=== PATIENT | female | born 1980 | race Caucasian/White ===

== ENCOUNTER 2016-06-09 05:41 | Inpatient (IN) | payer OTHER ==
--- NOTE | 2016-05-19 12:23 | GHP ---
[f rep st] PREOP HISTORY AND PHYSICAL Scheduled date of surgery is June 09, 2016, at 7:30 a.m. SURGERY TO BE PERFORMED: Primary lower transverse section at 39 weeks for the diagnosis of a history of cystocele following vaginal delivery. Desires . HISTORY OF PRESENT ILLNESS: The patient is a 36-year-old, 2, para 1-0-0-1, with a last mens trual period of 09/08/2015 and EDC of 06/16/2016, which was changed by an 8-week ultrasound. She watkins s had good care at [facility] since registration at 8 weeks. 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 Patient has had good car e, has had good growth, and has progressed to 36 weeks currently. We have had extensive discu ssions regarding her last delivery course and decisions of delivery options for this baby and becaus e of significant cystocele and pelvic prolapse symptoms that persist even now, 3 years following joana martinez of her son, she wishes to have a primary elective for delivery of this baby. With h er G1 delivery, she had care with a lining layer. She labored at home for over 24 hours in which she was pushing for 2-1/2 hours at 9 cm. When she presented to the hospital secondary to exha ustion, she has received an epidural and Pitocin and she labored down passively. She progressed to fully dilated and +2 station, and then she had a 2 hour second stage and delivered. With that deliv jorge alberto, she had bilateral vaginal sulcus laceration and a second-degree perineal laceration, which was repaired. Approximately 2 weeks , she presented for presumed perineal infection, received a course of Keflex antibiotics. Approximately 9 weeks , she had a significant episode of constipation with straining, and she noticed a vaginal bulge. On pelvic exam, she did, at that poi nt, have a cystocele rectocele combination. Her symptoms have waxed and waned over the last 2-1/2 y ears. She is treated with manipulation, with physical therapy, and with acupuncture. We discussed pessary for symptomatic management, and then she got and has declined to use a pessary at t his point, she is very concerned about possibilities of further vaginal damage and decreasing of the support of her pelvic floor, and she does not want to have a vaginal delivery with this baby. She realizes that often second babies have a shorter first stage and second stage and less severe lacera tion risk. She is just not willing to have any risk of further damage to her support of her pelvic floor. Patient was consented for the risk of . She understands the risk of ; the risks of bleeding; infection; damage to organs, uterus, tubes, ovaries, bowel, bladder, nerves, blo od vessels, ureters; risk of injury; risk of hemorrhage requiring blood transfusion; hysterect rivas; or even . She understood these risks and benefits and agreed to proceed. PAST OBSTETRICAL HISTORY: She had the 1 full-term spontaneous vaginal delivery that was discussed p reviously. Baby weighed 8 pounds, 7 ounces in March of 2011. That is her only other . PAST GYNECOLOGICAL HISTORY: No significant abnormal Pap. She does have a history of HSV 2. She watkins s never had current outbreaks. She has a grade 1-2 cystocele and rectocele with uterine prolapse po st delivery. PAST MEDICAL HISTORY: None. PAST SURGICAL HISTORY: She has a history of an appendectomy and a tonsillectomy. She does have a h istory of dengue fever when she was in [place] in 2003. ALLERGIES: She is allergic to penicillin. It gives her a rash. MEDICATIONS: Include vitamins, folic acid, digestive enzymes. She was on a natural thyroi d supplement but has discontinued this, and her TSH has been monitored in is normal. She has used D ioclea likely just for nausea in this . FAMILY HISTORY: Mother has hypertension. Father has atrial fibrillation, also some pulmonary abnor malities. Mother has migraines. Multiple members of her family have depression. Both parents are smokers, have history of alcohol abuse. Sister also has alcohol abuse. No other significant family history. OBJECTIVE: VITAL SIGNS: She is afebrile. Blood pressure is 128/82. Weight is 207, which is a 37 pound weight gain in this . GENERAL: She is a well-developed, well-nourished, gravid fema le, in no acute distress. LUNGS: Clear to auscultation bilaterally. HEART: Regular rate and rhyt hm. No murmurs. ABDOMEN: Gravid, nontender. Fundal height is 47. heart tones are 120s. G BS was done today. Cervical exam was deferred. ASSESSMENT AND PLAN: A 36-year-old, 2, para 1-0-0-1, who will be 39 weeks' gestation on 03/2016, desires an elective primary section secondary to a history of cystocele, rectocele , and uterine prolapse following the vaginal delivery of G1. All questions were answered and consen t was obtained. /[id number]/MODL
--- NOTE | 2016-06-09 06:19 | OBPROG ---
OBG Progress Note Assessment/Plan: Assessment: elevated bp pih labs yesterday wnl elevated bp today iv started without difficulty irregular contractions cat1 fhr Plan:scheduled for previous cystocele and rectocele 06/09/16 06:16 Subjective: I am a little nervous today FHR (bpm): 125 FHR Pattern Variability: Moderate FHR Category: 1 Membranes: Intact - Physical Exam General Appearance: WD/WN, alert, no apparent distress Respiratory: chest non-tender, lungs clear, normal breath sounds Cardiac/Chest: regular rate, rhythm Abdomen: normal bowel sounds Membranes: Intact Extremities: normal range of motion, Ana's sign (negative bilaterally/ dtrs1+ bilaterally negative clonus) DTR- Lower Extremities: Knee (R): 1+, Knee (L): 1+ Skin: normal color, warm/dry Neuro/Psych: no motor/sensory deficits, alert, normal mood/affect, oriented x 3 ICD10 Worksheet Patient Problems: Problems Problem Status Onset scheduled section Acute
[2016-06-09] MEDS ORDERED: LR 500 ML IV ONE (06:20)
[2016-06-09] MEDS ORDERED: CITRIC ACID/SODIUM CITRATE 30 ML UDCUP PO ONE (06:20)
[2016-06-09] MEDS ORDERED: CLINDAMYCIN 900 MG/DEXTROSE 50 ML IV ONE ×2 (06:20→07:30)
[2016-06-09] MEDS ORDERED: LR 1,000 ML IV SCH (06:30)
[2016-06-09 06:37] LABS: % IMMATURE GRANULYOCYTES 0.6 % (0.0-1.1); ABSOLUTE IMMATURE GRANULOCYTES 0.07 10^3/uL (0.00-0.10); ADD DIFF? NO; ADD MORPH? NO; ADD SCAN? NO; ATYPICAL LYMPHOCYTE FLAG 10 (0-99); FRAGMENT RBC FLAG 0 (0-99); HEMOGLOBIN 13.3 g/dL (12.6-16.3); LEFT SHIFT FLG 0 (0-99); LIPEMIA HEMOLYSIS FLAG 90 (0-99); MEAN CELL HEMOGLOBIN 30.4 pg (27.9-34.1); MEAN CELL HEMOGLOBIN CONCENTR. 34.1 g/dL (32.4-36.7); MEAN CELL VOLUME 89.2 fL (81.5-99.8); MEAN PLATELET VOLUME 10.2 fL (8.7-11.7); PLATELET CLUMPS FLAG 0 (0-99); PLATELET COUNT 212 10^3/uL (150-400); RED BLOOD CELL COUNT 4.37 10^6/uL (4.18-5.33); RED CELL DISTRIBUTION WIDTH 14.1 % (11.5-15.2)
[2016-06-09] MEDS ORDERED: PHENYLEPHRINE HCL 100 MCG/ML SYR ONE (07:27)
[2016-06-09] MEDS ORDERED: fentaNYL 100 MCG/2 ML INJ ONE (07:27)
[2016-06-09] MEDS ORDERED: ONDANSETRON 4 MG/2 ML VIAL ONE (07:27)
[2016-06-09] MEDS ORDERED: morphINE PF 5 MG/10 ML INJ ONE (07:28)
[2016-06-09] MEDS ORDERED: LABETALOL HCL 5 MG/ML 20 ML MDV IVP PRN (07:37)
[2016-06-09] MEDS ORDERED: ONDANSETRON 4 MG/2 ML VIAL IVP PRN ×2 (07:37)
[2016-06-09] MEDS ORDERED: fentaNYL 100 MCG/2 ML INJ IVP PRN (07:37)
[2016-06-09] MEDS ORDERED: HYDROmorphONE/DILAUDID 1 MG/ML SYR IVP PRN (07:37)
[2016-06-09] MEDS ORDERED: MEPERIDINE 25 MG/ML SYR IVP PRN (07:37)
[2016-06-09] MEDS ORDERED: NALOXONE HCL 0.4 MG/ML INJ IVP PRN (07:37)
[2016-06-09] MEDS ORDERED: PHENYLEPHRINE HCL 100 MCG/ML SYR IVP PRN (07:37)
[2016-06-09] MEDS ORDERED: LIDOCAINE 1% 30 ML SDV ONE (07:59)
[2016-06-09] MEDS ORDERED: TERBUTALINE SULFATE 1 MG/ML VIAL ONE (08:00)
[2016-06-09] MEDS ORDERED: MISOPROSTOL 200 MCG TAB ONE (08:01)
[2016-06-09] MEDS ORDERED: ACETAMINOPHEN 325 MG TAB PO PRN (09:31)
[2016-06-09] MEDS ORDERED: DOCUSATE SODIUM 100 MG CAP PO PRN (09:31)
[2016-06-09] MEDS ORDERED: SIMETHICONE 80 MG TAB CHEW PO PRN (09:31)
[2016-06-09] MEDS ORDERED: MAGNESIUM HYDROXIDE 30 ML UDCUP PO PRN (09:32)
[2016-06-09] MEDS ORDERED: BISACODYL 10 MG SUPP PR PRN (09:32)
[2016-06-09] MEDS ORDERED: LACTULOSE 20 GM/30 ML UDCUP PO PRN (09:32)
[2016-06-09] MEDS ORDERED: POLYETHYLENE GLYCOL 3350 17 GM PKT PO PRN (09:32)
--- NOTE | 2016-06-09 09:36 | OBPROC ---
- Delivery Pre-op Diagnoses: IUP @ 39 weeks, h/o cystocele, rectocle after vaginal delivery elective c section Post-op Diagnoses: same Procedure: Primary Surgeon: Marcela Saldaña Trauma Doctor: Yashira Escalera Anesthesiologist: Joe Ponce History Professor/QUILL MACHINE TENDER: Caroline Marr Anesthesia: Spinal Complications: None Findings: normal uterus, tubes and ovaries IV Fluid (ml): 2,100 EBL: 800 - [place] Info Infant A Delivery Date: 06/09/16 Delivery Time: 08:35 Sex of : Female Weight (gm): 2693.205 g Score (1 Min): 8 Score (5 Min): 9
[2016-06-09] MEDS: KETOROLAC 30 MG/1 ML SDV IVP PRN ×3 (10:46→23:28)
--- NOTE | 2016-06-09 11:20 | GOP ---
[f rep st] OPERATIVE REPORT DATE OF OPERATION: 06/09/2016 SURGEON: Marcela Saldaña MD OPHTHALMOLOGIST RETINA SPECIALIST: Yashira Escalera MD. ANESTHESIA: Spinal anesthesia. ANESTHESIOLOGIST: Baltazar Ambrosio MD. PREOPERATIVE DIAGNOSIS: Intrauterine at 39 weeks' gestation with a history of a cystocele and rectocele post vaginal delivery who chose to have a primary . POSTOPERATIVE DIAGNOSIS: PROCEDURE PERFORMED: Primary low transverse section. FINDINGS: Viable female, Apgars of 8 and 9. Weight of 5 pounds 15 ounces. ESTIMATED BLOOD LOSS: 800 cc. INDICATIONS: The patient is a 36-year-old, 2, para 1-0-0-1, with a last menstrual period of 09/08/2015 and an EDC of 06/16/2016, which was set by an 8-week ultrasound. She had good care at [facility] since registration at 8 weeks. Significant risk factors include advanced maternal age, normal genetic testing in this , a penicillin allergy that causes a rash, history of HSV 2, which is on Valtrex suppression, and history of cystocele follow G1 vaginal delivery. We had extensive discussions regarding her last delivery course and delivery options for this baby because she has significant cystocele, pelvic prolapse symptoms that persist 4-1/2 years after the vaginal delivery of her first baby. 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 When she presented to the hospital secondary to exhaustion, she received an epidural and Pitocin. When she was fully dilated, +2 station, she had a 2 hour 2nd stage and delivered. With that delivery she had bilateral vaginal sulcus laceration, second-degree perineal laceration which was repaired, and did have a perineal infection that was treated 2 weeks . 9 weeks she had some significant episode of constipation with straining, noted vaginal bulge. On that exam she had a cystocele and a rectocele and which she has had extensive treatment and continues to have symptoms. She did not wish to have a chance of worsening her pelvic symptoms with another vaginal delivery and elected to have a . She consented for the procedure. She understood the risks and benefits. The risks including bleeding, infection, damage to internal organs, uterus, tubes, ovaries, bowel, bladder, nerves, blood vessels, ureters, risk of injury, risk of hemorrhage requiring blood transfusion, hysterectomy, or . She understood these risks and benefits and agreed to proceed. DESCRIPTION OF PROCEDURE: Patient was taken to the operating room, where she was given spinal anesthesia without difficulty. She was prepped and draped in the dorsal supine position with a leftward tilt. A May catheter was placed in her bladder. After adequate anesthesia was assured and a WHO time-out was performed, a transverse skin incision was made with the scalpel. The incision was carried down to the underlying layer of fascia with the Bovie. The fascia was incised in midline. Fascial incision was extended laterally with Guy scissors. Superior aspect of the fascial incision was grasped with the Makenna clamps, elevated, and the rectus muscles were dissected off sharply. Inferior aspect of the fascial incision was grasped with the Makenna clamps, elevated, and the rectus muscles were dissected off sharply. Rectus muscles were in midline. Peritoneum was entered bluntly. Peritoneal incision was extended superiorly and inferiorly with good visualization of the bladder. Bladder flap was elevated, entered sharply with Metzenbaum scissors. The incision was extended laterally, and bladder flap was created digitally. The uterus was incised with a knife. The uterus and the incision were extended laterally with bandage scissors, and there was clear fluid upon entry to the uterine cavity. The infant was delivered atraumatically. The cord was clamped and cut. The infant was handed off to the waiting nurse practitioner. Cord bloods were sent. The placenta was removed manually. The uterus was exteriorized, cleared of all clots and debris. The uterine incision was repaired with 0 Vicryl in a running, locked fashion. A 2nd imbricating layer was imbricated in and repaired with 0 Vicryl, and good hemostasis was assured. Uterus was returned to the abdomen. The gutters were cleared of all clots and debris. Reinspection of the uterine incision again assured hemostasis. The rectus muscles were approximated with 2-0 Vicryl in an inverted mattress fashion. The fascia was closed with #1 Vicryl. Subcutaneous layer was closed with 2-0 Vicryl. The skin was closed with 4-0 Vicryl. The patient tolerated the procedure well. Sponge, lap, needle, and instrument counts were correct x2. Patient went to the recovery room in good condition. FLUID REPLACEMENT: 2100 cc. URINE OUTPUT: 300 cc. /[id number]/MODL MTDD
[2016-06-09] MEDS: HYDROCODONE/APAP 5/325 TAB PO PRN ×2 (12:24→16:37)
[2016-06-09] MEDS: SENNOSIDES/DOCUSATE SODIUM TAB PO SCH (21:10)
--- NOTE | 2016-06-09 23:35 | SOAPPROG ---
SOAP Progress Note Assessment/Plan: Assessment: PT SEEN AROUND 2100 POD 0 s/p primary C/S for traumatic first delivery with cystocele Plan: routine care 06/09/16 23:32 Subjective: Pt doing well. Strong ctxns when baby BF. has a good latch. using [place] for ctxns - o/w incisional pain controlled. No nausea today and mukesh reg diet. webb in place Objective: Vital Signs Temp Pulse Resp BP Pulse Ox 36.8 C 92 12 78/62 L 94 06/09/16 20:00 06/09/16 20:00 06/09/16 20:00 06/09/16 19:00 06/09/16 21:00 Laboratory Results 06/09/16 06:15 06/08/16 06/09/16 06/10/16 05:59 05:59 05:59 Intake Total 3900 Output Total 1550 Balance 2350 Physical Exam - Physical Exam General Appearance: WD/WN Abdomen: non-tender (approp post op tenderness), other (bandage CDI, uterus Fundus firm at umb) Pelvic Exam: vaginal bleeding (normal lochia) Extremities: non-tender, pedal edema (minimal) Neuro/Psych: normal mood/affect ICD10 Worksheet Patient Problems: Problems Problem Status Onset scheduled section Acute
[2016-06-10] MEDS: KETOROLAC 30 MG/1 ML SDV IVP PRN ×2 (05:06→11:07)
[2016-06-10] MEDS: SENNOSIDES/DOCUSATE SODIUM TAB PO SCH ×2 (09:15→20:53)
[2016-06-10] MEDS: HYDROCODONE/APAP 5/325 TAB PO PRN ×3 (11:56→20:53)
--- NOTE | 2016-06-10 14:16 | SOAPPROG ---
SOAP Progress Note Assessment/Plan: Assessment: pod#1 w/p PLTCS for hx cystocele and rectocele breast feeding anemia Plan: iron breast feeding routine post care 06/10/16 14:09 Subjective: patient is doing well. normal lochia. pain controlled. denies headache and change in vision. passing gas. has not had a bowel movement yet. voiding without difficulty. ambulating. Objective: Vital Signs Temp Pulse Resp BP Pulse Ox 36.6 C 90 18 120/88 H 96 06/10/16 12:00 06/10/16 12:00 06/10/16 12:00 06/10/16 12:00 06/10/16 12:00 Laboratory Results 06/10/16 06:00 06/09/16 06/10/16 06/11/16 05:59 05:59 05:59 Intake Total 4400 Output Total 3050 750 Balance 1350 -750 Physical Exam - Physical Exam General Appearance: WD/WN, alert, no apparent distress Respiratory: chest non-tender, lungs clear, normal breath sounds Cardiac/Chest: normal peripheral pulses, regular rate, rhythm Abdomen: normal bowel sounds, non-tender, soft, other (fundus firm and non tender) Skin: normal color, warm/dry Extremities: normal range of motion, non-tender, normal inspection, normal capillary refill Neuro/Psych: no motor/sensory deficits, alert, normal mood/affect, oriented x 3 ICD10 Worksheet Patient Problems: Problems Problem Status Onset scheduled section Acute
[2016-06-10] MEDS: IRON POLYSAC/IRON HEME 28 MG TAB PO SCH ×2 (17:29→23:50)
[2016-06-10] MEDS: IBUPROFEN 600 MG TAB PO PRN (18:56)
[2016-06-11] MEDS: IBUPROFEN 600 MG TAB PO PRN ×4 (01:04→19:03)
[2016-06-11] MEDS: HYDROCODONE/APAP 5/325 TAB PO PRN ×5 (06:06→22:01)
[2016-06-11] MEDS: SENNOSIDES/DOCUSATE SODIUM TAB PO SCH ×2 (08:46→20:40)
[2016-06-11] MEDS: IRON POLYSAC/IRON HEME 28 MG TAB PO SCH ×2 (09:44→23:09)
--- NOTE | 2016-06-11 10:31 | OBPROG ---
OBG Progress Note Assessment/Plan: Assessment: 36 y/o POD #2 s/p LTCS secondary to history of cystocele following G1 delivery Plan: Ambulate and shower today. Abdominal binder for support. Routine POC and d/c home tomorrow. 06/11/16 10:29 Subjective: Pt is doing well today. She has min pain controlled with PO [place] and Ibuprofen. No n/v, mukesh reg diet. Ambulating and voiding well and had + BM yesterday. Breast feeding is going well, her milk came in yesterday. Baby is doing well and they feel ready to d/c home tomorrow. Objective: 06/10/16 06:00 Patient ABO/Rh O POSITIVE 06/09/16 06:15 Temp Pulse Resp BP Pulse Ox 36.6 C 84 20 129/80 H 94 06/11/16 07:30 06/11/16 07:30 06/11/16 07:30 06/11/16 07:30 06/11/16 07:30 Uterine Position/Fundal Height: Umbilicus -2 Uterine Tone: Firm - Physical Exam General Appearance: WD/WN, alert, no apparent distress Neck: non-tender, full range of motion, supple Respiratory: chest non-tender, lungs clear, normal breath sounds Cardiac/Chest: regular rate, rhythm Abdomen: normal bowel sounds, incision (c/d/i) Extremities: swelling (no ), Ana's sign (neg) ICD10 Worksheet Patient Problems: Problems Problem Status Onset scheduled section Acute
--- NOTE | 2016-06-11 12:07 | POSTANESTH ---
Post Anesthetic Evaluation Cardiovascular Status: Normal, Stable Respiratory Status: Normal, Stable Level of Consciousness/Mental Status: Can Participate in Eval Pain Control: Adequate, Prn Tx Ordered Nausea/Vomiting Control: Adequate, Prn Tx Ordered Complications Possibly Related to Anesthesia: None Noted
[2016-06-12] MEDS: IBUPROFEN 600 MG TAB PO PRN ×3 (01:04→12:04)
[2016-06-12] MEDS: HYDROCODONE/APAP 5/325 TAB PO PRN ×3 (04:19→12:03)
--- NOTE | 2016-06-12 07:22 | OBPROG ---
OBG Progress Note Assessment/Plan: Assessment: 1) s/p 1 LTCS POD # 3 - pt is stable 2) Anemia - pt is asymptomatic Plan: Plan for d/c home today Instructions reviewed Rx given for [place] and Motrin Cont PNV, iron and colace Pelvic rest RTC in 2 ,4 and 6 weeks for pp visit 06/12/16 07:19 Objective: 06/10/16 06:00 Patient ABO/Rh O POSITIVE 06/09/16 06:15 Temp Pulse Resp BP Pulse Ox 36.3 C 80 17 141/88 H 97 06/11/16 20:30 06/11/16 20:30 06/11/16 20:30 06/11/16 20:30 06/11/16 20:30 Uterine Position/Fundal Height: Umbilicus -2 Uterine Tone: Firm - Physical Exam General Appearance: WD/WN, alert, no apparent distress Respiratory: lungs clear, normal breath sounds Cardiac/Chest: regular rate, rhythm Abdomen: normal bowel sounds, non-tender, soft, flatus (+), incision (C/D/I with steri strips) Genitourinary: lochia (mild) Extremities: non-tender, normal inspection Neuro/Psych: alert, normal mood/affect, oriented x 3 ICD10 Worksheet Patient Problems: Problems Problem Status Onset scheduled section Acute
[2016-06-12] MEDS: IRON POLYSAC/IRON HEME 28 MG TAB PO SCH (07:53)
[2016-06-12] MEDS: SENNOSIDES/DOCUSATE SODIUM TAB PO SCH (07:56)
[2016-06-12 09:49] VITALS: BP 123/75; PULSE 78; RESP 16; TEMP 98; O2SAT 98
== END 2016-06-12 12:30 | disposition home or self-care (01) | DRG 766 ==
LOC: FLD 05:41 → FOB 11:35
PROVIDERS: ADMIT Obstetrics & Gynecology; ATTEND Obstetrics & Gynecology
PROC: 10D00Z1 Extraction of Products of Conception, Low, Open Approach (ICD-10-PCS; principal; 2016-06-09)
DX: O34.93 Maternal care for abnormality of pelvic organ, unspecified, third trimester (principal); N81.89 Other female genital prolapse; O90.81 Anemia of the puerperium; Z3A.39 39 weeks gestation of pregnancy; Z37.0 Single live birth
CPT/HCPCS: J1885; J2274; J2370; J2405; J3010; J3105